=== PATIENT | male | born 1960 | race African-American/Black ===

== ENCOUNTER 2020-03-05 17:12 | Inpatient (IN) | payer OTHER ==
[~2020-03-05] VITALS: Ht 182.9 cm; Wt 93.9 kg
--- NOTE | 2020-03-05 19:25 | NUR ---
Patient arrived in the unit via gurney from [facility], [place], [place].
[2020-03-05 21:30] VITALS: BP 158/100
[2020-03-05] MEDS ORDERED: BLOOD SUGAR DIAGNOSTIC 1 EACH STRIP VI ONE (22:15)
[2020-03-05] MEDS ORDERED: ACETAMINOPHEN 325 MG TABLET PO PRN (22:15)
[2020-03-05] MEDS ORDERED: MAGNESIUM HYDROXIDE 30 ML LIQUID UDC PO PRN (22:15)
[2020-03-05] MEDS ORDERED: MAG HYDROX/AL HYDROX/SIMETH 30 ML LIQUID UDC PO PRN (22:15)
--- NOTE | 2020-03-05 22:30 | NUR ---
Admission Note: 59 y.o. male brought to MHU on a direct admit from [facility]. 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 Pt admitted on a 5150 for DTS and DTO under the care of Dr Mitchell and Dr Thompson with a dx of Psychosis. According to the 5150, Pt was walking into traffic, yelling at people and cars. Pt was threatening toward ER staff and peers. Pt was paranoid and aggressive, and at risk for harm to himself or others. Upon face to face evaluation, Pt is A+Ox3, and states he is here because the police have been messing with me when I was crossing the street. They accused me of wandering, but I wasnt, I was just crossing the street. Pt denies everything that is written on the Hold and accuses the police of being out to get me. Pt denies wanting to hurt anyone, and has no plan or intent. Pt denies any past or current suicidal thoughts, ideations or plans, verbally contracts for safety, but is unreliable due to labile and agitated behavior. Pt is noted to be guarded with personal information and gives minimal disclosure. Affect is veers from flat to elevated, speech is pressured, mood is labile, and easily irritable. Presents as manic, delusional, paranoid, and hyperverbal. Pt made several grandiose statements, I have a billion dollars in the bank, I going to get [facility] to cynthia you for keeping me here illegally. Pt became agitated when his Advisement was given to him, he threatened to cynthia all of you motherfuckers keeping me hostage against my will. Pt was redirected and offered prn medication, which he refused. Pt was educated several times regarding unit rules and policy, but he remained anxious and upset, then apologetic later. Pt is unable or unwilling to verbalize a viable or realistic plan for safety. Pt is uncooperative with admission process and refused to sign paperwork, except for his belongings. Denies Denies AH/VH, but appears internally preoccupied at times when he is not engaging with staff. Pt denies any access to firearms or any legal hx, denies any current or prior substance abuse issues. Skin assessment completed-c/d/I, mild (B) ankle edema noted. Medical h/o schizophrenia and HTN, no prior medications on recors and per Pt. Dr Mitchell and Dr Thompson notified of admission, meds reconciled, orders received. Pt belongings inventoried, contraband placed in unit locker. VS stable, Pt denied any pain or discomfort on admission. Meal provided and consumed 100%. Pt gave verbal permission to contact his brother Les, who was notified of his admission at 2230. Patient Rights handbook and Advisement given, rights and unit rules explained to Pt, who needs reinforcement d/t mental status and uncooperative behavior. Pt oriented to the unit, the phone, the restrooms, and his room. Q 15 minute safety checks initiated for safety.
--- NOTE | 2020-03-05 22:50 | NUR ---
Admission process initiated after receiving additional documents from [facility]. Awake alert and oriented x 4, talkative, Plan of care initiated. Denies nay pain at this time. Left LE with non pitting edema and right knee. Ambulatory with steady gait.
[2020-03-06] MEDS ORDERED: TEMAZEPAM 7.5 MG CAPSULE PO PRN
--- NOTE | 2020-03-06 07:21 | NUR ---
Slept 2 hours only. been busy cleaning the bathrooms and activity room.
[2020-03-06 07:30] VITALS: BP 163/100
--- NOTE | 2020-03-06 07:30 | NUR ---
received patient AOx2-3, patient ambulatory self care , patient having obsessive compulsive behavior of cleaning his room, patient needed to be redirect at all time, call and spoken with patients family , updated patients medication , informed MD regarding the medication, patient pacing , responding to internal stimuli, will continue monitor
[2020-03-06] MEDS ORDERED: HYDR25TA4 PO (10:58)
[2020-03-06] MEDS ORDERED: AMLO10TA59 PO (10:59)
[2020-03-06] MEDS ORDERED: diphenhydrAMINE 50 MG/1 ML VIAL IM ONE (12:00)
[2020-03-06] MEDS ORDERED: LORAZEPAM 2 MG/1 ML VIAL IM ONE (12:00)
[2020-03-06] MEDS ORDERED: HALOPERIDOL LACTATE 5 MG/1 ML VIAL IM ONE (12:00)
--- NOTE | 2020-03-06 12:28 | NUR ---
ANTONINO Initial Discharge Plan: Patient currently resides at [address] [place] [id number] by himself. Patient has siblings who he states are close by and support him. Patient provided his brother's information Les ([phone]). Patient would like to return home upon discharge. ANTONINO will continue to work with patient, family, and MD to ensure a safe and proper discharge plan.
--- NOTE | 2020-03-06 12:28 | NUR ---
ANTONINO Family Contact: ANTONINO attempted to call patient's brother Les ([phone]) however unable to leave a voicemail due to mailbox full.
--- NOTE | 2020-03-06 12:31 | NUR ---
Firearms Report: [employer] Field Coordinator completed and submitted a [employer] firearms report for 5150 danger to self and others certification. A copy of report has been placed in patient chart.
--- NOTE | 2020-03-06 12:43 | NUR ---
Emergency Medication Patient been pre occupied with his compulsive behavior of cleaning the dining room, patient start to shout and at the staff, unable to redirect and threatening staff, patient paranoid and delusional, called and spoke with DR. Mitchell, with orders for emergency medication , orders made and carried out (haldol 5mg, ativan 2, and benadryl 50mg) via IM medication patient tolerated the medication and moniotre [id number] for safety, VS moniotored , no distress at this time , will continue monitor
[2020-03-06 14:08] LABS: *BILIRUBIN,URIN NEGATIVE (NEGATIVE); *BLOOD, URINE NEGATIVE (NEGATIVE); *CLARITY,URINE CLEAR (CLEAR); *COLOR,URINE YELLOW (YELLOW); *KETONES,URINE NEGATIVE (NEGATIVE); *UROBILINOGEN,URINE 0.2 E.U./dl (NORMAL); LEUKOCYTE ESTERASE ,URINE NEGATIVE (NEGATIVE); NITRITE, URINE NEGATIVE (NEGATIVE); UGLUCOSE NEGATIVE (NEGATIVE)
[2020-03-06] MEDS: AMLODIPINE 10 MG TABLET PO SCH (14:20)
[2020-03-06 16:09] VITALS: BP 113/72
[2020-03-06] MEDS: BENZTROPINE MESYLATE 1 MG TABLET PO SCH ×2 (16:25→17:05)
[2020-03-06] MEDS: HALOPERIDOL 5 MG TABLET PO SCH (17:05)
--- NOTE | 2020-03-06 18:24 | NUR ---
patient been calm and asleep in his room, patient compliant with his medication, patient monitored [id number] for safety , will continue monitor
[2020-03-06 20:00] VITALS: BP 111/63
[2020-03-06] MEDS: CLONAZEPAM 0.5 MG TABLET PO PRN (21:56)
--- NOTE | 2020-03-07 05:45 | NUR ---
Received patient at the start of the shift, very smiley and energetic. Patient proceeded to wipe down the whole unit with a wash cloth, despite redirection. Patient had a PRN for anxiety but refused a sleeping medication. Total sleep hours was 4.00. Patient up early watching TV and interacting with another patient. Frequent requests for snacks last night but otherwise no issues of aggression or irritability towards staff or peers. Continue to offer redirection and to monitor for safety and behavior escalation. Patient denies SI and HI at this time.
[2020-03-07 07:30] VITALS: BP 126/79
[2020-03-07] MEDS: BENZTROPINE MESYLATE 1 MG TABLET PO SCH ×3 (08:22→16:33)
[2020-03-07] MEDS: HALOPERIDOL 5 MG TABLET PO SCH ×2 (08:22→16:33)
[2020-03-07] MEDS: HYDROCHLOROTHIAZIDE 25 MG TABLET PO SCH (08:23)
[2020-03-07] MEDS: AMLODIPINE 10 MG TABLET PO SCH (08:23)
--- NOTE | 2020-03-07 10:20 | NUR ---
Gps/Import Export Agent- Had been hyperverbal, constantly needing redirections, intrussive, , prompted to take routine meds. participating in his group therapy , gets loud when talking
[2020-03-07 12:44] LABS: THYROID STIMULATING HORMONE 2.198 mIU/mL (0.358-3.740)
[2020-03-07 12:45] LABS: BASOPHILS % (AUTO) 0.8 % (0.0-2.0); EOSINOPHILS # (AUTO) 0.2 K/uL (0.0-0.7); HEMATOCRIT 40.9 % (36.7-47.1); HEMOGLOBIN 13.4 g/dL (12.5-16.3); LYMPHOCYTES # (AUTO) 1.7 K/uL (20.0-40.0); LYMPHOCYTES % (AUTO) 33.2 % (20.5-51.5); MAGNESIUM 1.8 mg/dL (1.8-2.4); MEAN CORPUSCULAR HEMOGLOBIN 31.9 uug (23.8-33.4); MEAN CORPUSCULAR HGB CONC 33 g/dL (32.5-36.3); MEAN CORPUSCULAR VOLUME 97.3 fL (73.0-96.2); MONOCYTES # (AUTO) 0.6 K/uL (2.0-10.0); NEUTROPHILS # (AUTO) 2.6 K/uL (1.8-8.9); PHOSPHOROUS 3.7 mg/dL (2.5-4.9); PLATELET COUNT (AUTO) 389 K/uL (152-348); RED BLOOD CELL COUNT(AUTO) 4.21 MIL/uL (4.06-5.63); WHITE BLOOD COUNT (AUTO) 5.1 K/uL (3.6-10.2)
[2020-03-07 16:00] VITALS: BP 126/79
[2020-03-07] MEDS: CLONAZEPAM 0.5 MG TABLET PO PRN (19:54)
[2020-03-07 20:00] VITALS: BP 119/74
--- NOTE | 2020-03-07 20:00 | NUR ---
Patient in TV room, pacing back and forth and hyperverbal. Patient medicated for anxiety, cooperative with medication and care, encouraged to stay in his room and try to get some rest. Patient follow instruction, but back in hallways again, cont to monitor.
--- NOTE | 2020-03-08 06:13 | NUR ---
Patient slept for few hours, awake early and took shower. Patient hyperverbal, seen interacting with other patient. Redirect patient behavior. cont to monitor.
[2020-03-08 07:30] VITALS: BP 130/78
[2020-03-08] MEDS: AMLODIPINE 10 MG TABLET PO SCH (08:09)
[2020-03-08] MEDS: BENZTROPINE MESYLATE 1 MG TABLET PO SCH ×3 (08:09→16:53)
[2020-03-08] MEDS: HYDROCHLOROTHIAZIDE 25 MG TABLET PO SCH (08:09)
[2020-03-08] MEDS: HALOPERIDOL 5 MG TABLET PO SCH ×2 (08:09→16:53)
--- NOTE | 2020-03-08 11:47 | NUR ---
Gps/Bottle And Glass Inspector- Hyperverbal, restless, trying to released lap tray for one of the patient, sitting infront of the nurses station, discouraged from doing so . Patient reading booklet for patient's rights and info. regarding MHU , wanting to know court hearing , informed will find out monday , r/t weekend
[2020-03-08] MEDS: CLONAZEPAM 0.5 MG TABLET PO PRN (12:41)
[2020-03-08 15:04] VITALS: BP 123/79
[2020-03-08 20:00] VITALS: BP 134/81
--- NOTE | 2020-03-09 05:54 | NUR ---
GPS: Remain calm and cooperative with nursing care. Patient slept for 5 hours, awake early and took shower. occ hyperverbal, seen interacting with other patient. no c/o pain or discomfort at this time.cont to monitor.
[2020-03-09 07:30] VITALS: BP 124/83
[2020-03-09] MEDS: CLONAZEPAM 0.5 MG TABLET PO PRN ×2 (08:11→17:37)
[2020-03-09] MEDS: BENZTROPINE MESYLATE 1 MG TABLET PO SCH ×3 (08:12→17:37)
[2020-03-09] MEDS: HYDROCHLOROTHIAZIDE 25 MG TABLET PO SCH (08:12)
[2020-03-09] MEDS: HALOPERIDOL 5 MG TABLET PO SCH ×2 (08:13→17:36)
[2020-03-09] MEDS: AMLODIPINE 10 MG TABLET PO SCH (08:13)
--- NOTE | 2020-03-09 11:34 | NUR ---
Individual Intervention: ANTONINO met with the pt in the hallway as the pt was requesting a writ of habeas corpus. SW informed the pt that she can give him the form for the time being but he was placed on a 14 day hold and has not had his hearing at this time. SW informed him that he would need to wait for his hearing before filing.
--- NOTE | 2020-03-09 11:36 | NUR ---
Individual Intervention: Pt came to the SW's office and stated that he wanted a copy of the incident reports that took place over the weekend. SW stated that incident reports fall under nursing and that the pt can ask the nurses. Pt stated that he was going to call 911 and then cursed at the . Pt appears to be labile at this time.
--- NOTE | 2020-03-09 13:46 | NUR ---
UR Note: Authorization #[id number]. ANTONINO faxed a clinical review to the fax number: [phone]. ANTONINO will follow up regarding authorization.
[2020-03-09 15:32] VITALS: BP 145/81
[2020-03-09] MEDS ORDERED: DIVALPROEX 500 MG TABLET.DR PO SCH (18:30)
[2020-03-09 20:00] VITALS: BP 122/75
--- NOTE | 2020-03-10 05:12 | NUR ---
patient is hyperverbal, conversant, gets in stressing , redirected from time to time. Compliant with his routine meds. , tends to talk loud ,slept 6.45 hrs.
[2020-03-10 07:30] VITALS: BP 127/76
--- NOTE | 2020-03-10 07:30 | NUR ---
Received patient alert oriented x2, patient ambulatory self care, redirectable, patient intrusive, paranoid with staff, patient needed redirection patient compliant with medication on [id number] for safety , will continue monitor
[2020-03-10] MEDS: HALOPERIDOL 5 MG TABLET PO SCH ×2 (08:04→16:02)
[2020-03-10] MEDS: BENZTROPINE MESYLATE 1 MG TABLET PO SCH ×3 (08:04→16:02)
[2020-03-10] MEDS: AMLODIPINE 10 MG TABLET PO SCH (08:04)
[2020-03-10] MEDS: HYDROCHLOROTHIAZIDE 25 MG TABLET PO SCH (08:06)
--- NOTE | 2020-03-10 10:53 | NUR ---
UR Note: ANTONINO received a voicemail from [facility] disease case manager, Dayana ([phone]), which stated that the faxes have not been working and she provided the SW with an alternative fax number to send the clinicals to: [phone].
--- NOTE | 2020-03-10 10:54 | NUR ---
UR Note: Authorization #[id number]. ANTONINO faxed a clinical review to the fax number: [phone]. ANTONINO will follow up regarding authorization.
--- NOTE | 2020-03-10 11:01 | NUR ---
Individual Intervention with the pt: SW informed the pt that he has a Probable Cause hearing scheduled for today. Pt stated, "I am leaving today."
--- NOTE | 2020-03-10 15:02 | NUR ---
PC Hearing: Pts [phone] hold was upheld for grave disability.
--- NOTE | 2020-03-10 15:06 | NUR ---
Writ: Pt informed the SW that he is requesting a Writ of [facility]. SW filled it out with the pt and then faxed it to [place] [address] to the fax number: [phone].
--- NOTE | 2020-03-10 15:20 | NUR ---
MD Contact: ANTONINO contacted the pts Elroy DELANEY, who stated that he is planning to discharge the pt on as the pt is presenting well.
--- NOTE | 2020-03-10 15:21 | NUR ---
Individual Intervention: ANTONINO met with the pt and informed him that his writ has been filed and that his MD has been made aware. SW informed him that his discharge date is set for and that he will be transported back to [place] via train as he did not want to involve his family.
[2020-03-10 15:53] VITALS: BP 137/86
[2020-03-10] MEDS: DIVALPROEX 500 MG TABLET.DR PO SCH (16:02)
--- NOTE | 2020-03-10 19:20 | NUR ---
PATIENT CALM COOPERATIVE , NO SIGN OF DISTRESS, MONITORED [id number] , DENIES SI AND HI, ENDORSED TO NEXT SHIFT
[2020-03-10 20:15] VITALS: BP 137/83
[2020-03-11 07:30] VITALS: BP 127/85
[2020-03-11] MEDS: HALOPERIDOL 5 MG TABLET PO SCH ×2 (08:06→17:19)
[2020-03-11] MEDS: DIVALPROEX 500 MG TABLET.DR PO SCH ×2 (08:06→17:19)
[2020-03-11] MEDS: BENZTROPINE MESYLATE 1 MG TABLET PO SCH ×3 (08:06→17:19)
[2020-03-11] MEDS: AMLODIPINE 10 MG TABLET PO SCH (08:07)
[2020-03-11] MEDS: HYDROCHLOROTHIAZIDE 25 MG TABLET PO SCH (08:08)
[2020-03-11 16:00] VITALS: BP 135/78
[2020-03-11 20:00] VITALS: BP 133/84
--- NOTE | 2020-03-12 06:49 | NUR ---
GPS: Pt.slept 5 hrs last night. Remains hyperverbal,manic but re-directable. No aggressive behavior noted. Interacts with his peers. Safe environment provided.
[2020-03-12 07:30] VITALS: BP 131/85
--- NOTE | 2020-03-12 08:20 | NUR ---
Discharge Note: Pt will be discharged back to his home located at [address] [place] [address]. Pt will be transported via [employer] train at 1pm-pt was provided with his train ticket. Pt will be given a taxi voucher at 11am to the [facility] located at [address] [place] [address]. Upon discharge, pt appears to be in a euthymic mood and presents with a calm affect. Pt denies both suicidal and homicidal ideation as well as auditory and visual hallucinations. Pt appears to be alert and oriented x4 (time, place, self and situation). Pt appears to be well groomed and appropriately dressed. Pt appears to be ambulatory with a steady gait. Pt [facility] under the [facility]. [address], [place] [address]; ; fax of records was sent to: . SW called to make an appointment and was informed that the clinic would be reaching out to the pt once he is discharged. Pt will also be under the care of his cold roll inspector, Dr. Manuelito Paiz, located at [address], [place] [address]; ; fax of records was sent to: . Pt has an appointment on Monday, March 16 at 11:30am. The multidisciplinary exit care form was done, printed, signed, and given to the patient.
[2020-03-12] MEDS: HYDROCHLOROTHIAZIDE 25 MG TABLET PO SCH (08:29)
[2020-03-12 08:30] VITALS: BP 131/85
[2020-03-12] MEDS: DIVALPROEX 500 MG TABLET.DR PO SCH (08:30)
[2020-03-12] MEDS: BENZTROPINE MESYLATE 1 MG TABLET PO SCH (08:30)
[2020-03-12] MEDS: AMLODIPINE 10 MG TABLET PO SCH (08:30)
[2020-03-12] MEDS: HALOPERIDOL 5 MG TABLET PO SCH (08:30)
--- NOTE | 2020-03-12 10:11 | NUR ---
UR Note: ANTONINO faxed a discharge clinical to with attn to [employer] Dayana to the fax number: [phone]. Authorization #[id number].
--- NOTE | 2020-03-12 10:13 | NUR ---
Gps/Skull Splitter- Patient's sister Kadi called, wants to talk to SW. claimed patient not ready to be discharge. Patient alert, oriented, x4 had been compliant with his routine medications All belongings given back to patient ambulatory with steady gait, Reviewed discharged instructions, medications/ prescriptions, diet safety, follow up with his Doctor Gary , 03/16/20 at 11:30 am. verbalized understanding.
--- NOTE | 2020-03-12 10:52 | NUR ---
Gps/Pressure Dispatcher- Cell phone and 2 credit cards from [facility] , and [employer] , one black cell phone retuned back to patient . Discharged via taxi , in good spirit, all belongings given back, pt. in good spirit with no new c/o offered.
== END 2020-03-12 10:50 | disposition home or self-care (01) | DRG 885 ==
LOC: GPS 21:22
PROVIDERS: ADMIT Psychiatry & Neurology Psychiatry; ATTEND Registered Nurse
DX: F20.0 Paranoid schizophrenia (principal); Z91.14 Patient's other noncompliance with medication regimen; I10 Essential (primary) hypertension; E66.9 Obesity, unspecified; Z68.28 Body mass index [BMI] 28.0-28.9, adult; F29 Unspecified psychosis not due to a substance or known physiological condition
CPT/HCPCS: 36415; 83735; 84100; 84443; 85025; 87086; J1200; J1630; J2060